=== PATIENT | female | born 1975 | race Caucasian/White ===

== ENCOUNTER 2019-01-21 08:59 | Emergency (ER) | payer SELFPAY ==
[2019-01-21] MEDS: IBUPROFEN 600 MG TAB PO (09:45)
[2019-01-21] MEDS: LIDOCAINE 2% (MDV) 20 ML INJ INJ (09:45)
== END 2019-01-21 10:20 | disposition home or self-care (01) ==
LOC: FTE 08:59
DX: S61.412A Laceration without foreign body of left hand, initial encounter (principal); V49.49XA Driver injured in collision with other motor vehicles in traffic accident, initial encounter
CPT/HCPCS: 12001; 73130-LT; 99283-25